=== PATIENT | male | born 1970 | race Caucasian/White ===

== ENCOUNTER 2019-11-05 | Emergency (ER) | payer OTHER ==
[~2019-11-05] MED LIST: LORTAB 5-325 MG1 TAB PO; LORTAB 5/3255 MG PO
[2019-11-05 18:30] LABS: HEMATOCRIT 41.9 % (39.0-50.0); IMMATURE GRANULOCYTES 0.3 % (0.0-5.0); MEAN CORPUSCULAR HGB 28.5 pG CALC (26.0-32.0); MEAN CORPUSCULAR HGB CONC 33.9 g/L CALC (32.0-36.0); NEUT# 2.76 thou/uL (1.82-7.42); RED BLOOD COUNT 4.99 mill/uL (4.70-6.10)
[2019-11-05 18:34] LABS: HEMOGLOBIN 14.2 g/dl (14.0-18.0)
[2019-11-05 18:48] LABS: ALBUMIN 4.5 g/dL (3.2-5.0); ALKALINE PHOSPHATASE 56 u/l (38-126); ANION GAP 14 (6-22 (CALC)); BUN 10 mg/dL (9-20); BUN/CREATININE RATIO 10 (12-20 (CALC)); CARBON DIOXIDE 23 mmol/l (22-30); CHLORIDE 109 mmol/l (95-108); GFR > 60 ML/MIN (>=60 (CALC)); GFR FOR AFR.AMER. > 60 ML/MIN (>=60 (CALC)); LIPASE 253 u/l (23-300); POTASSIUM 3.9 mmol/l (3.5-5.1); SGOT/AST 21 u/l (17-59); SODIUM 142 mmol/l (137-146); TOTAL PROTEIN 7.2 g/dL (6.3-8.2)
[2019-11-05 18:50] LABS: BILIRUBIN, TOTAL 0.4 mg/dL (0.0-1.4)
[2019-11-05 18:58] LABS: URINE BILIRUBIN - DIPSTICK NEGATIVE (NEGATIVE); URINE BLOOD DIPSTICK LARGE (NEGATIVE); URINE COLOR YELLOW; URINE GLUCOSE - DIPSTICK NEGATIVE (NEGATIVE); URINE KETONE NEGATIVE (NEGATIVE); URINE LEUK ESTERASE NEGATIVE (NEGATIVE); URINE NITRITE - DIPSTICK NEGATIVE (Negative); URINE PROTEIN - DIPSTICK NEGATIVE (NEG-TRACE); URINE SPECIFIC GRAVITY >=1.030; URINE UROBILINOGEN - DIPSTICK 0.2 E.U./dL (0.2)
[2019-11-05 19:06] LABS: URINE WBC 0-2 WBC/hpf (0-5)
[2019-11-05] MEDS ORDERED: HYDROCO/APAP1 TA9 PO (19:29)
[2019-11-05] MEDS ORDERED: ONDANSETRON4 MG PO (19:29)
== END 2019-11-05 22:16 | disposition home or self-care (01) | DRG 694 ==
PROVIDERS: Family Medicine
DX: N13.2 Hydronephrosis with renal and ureteral calculous obstruction (principal); Z87.442 Personal history of urinary calculi

== ENCOUNTER 2023-06-24 23:31 | Emergency (ER) | payer OTHER ==
[~2023-06-24 23:31] MED LIST changes: +HYDROCO/APAP1 TA9 PO; +ONDANSETRON4 MG PO
== END 2023-06-24 23:36 | disposition left against medical advice (07) | DRG 951 ==
LOC: ED 23:31 → LWOBS 23:35
DX: Z53.21 Procedure and treatment not carried out due to patient leaving prior to being seen by health care provider (principal)